=== PATIENT | male | born 1960 | race Caucasian/White ===

== ENCOUNTER → 2016-07-11 | Outpatient (CLI) | payer OTHER ==
[~2016-07-11] MED LIST: LIPITOR TAB 2020 MG PO; NORVASC 5 MG TAB5 MG PO
== END ==
LOC: US 14:39
DX: R22.1 Localized swelling, mass and lump, neck (principal)
CPT/HCPCS: 76536

== ENCOUNTER → 2020-05-13 | Outpatient (CLI) | payer OTHER ==
[2020-05-13 08:57] LABS: HEMOGLOBIN 15.9 gm/dl (14.0-17.5); RED BLOOD COUNT 5.38 M/UL (4.20-5.50); WHITE BLOOD COUNT 6.2 K/UL (4.5-11.0)
[2020-05-13 09:26] LABS: BUN/CREATININE RATIO 22 (0-10)
[2020-05-14 07:11] LABS: HBSAG SCREEN Negative (Negative); HEP B CORE AB, IGM Negative (Negative); HEPATITIS B SURF AB QUANT <3.1 mIU/mL (Immunity>9.9)
[2020-05-15 13:13] LABS: HISTOPLASMA GAL'MANNAN AG UR <0.5 (<0.5 ng/mL)
[2020-05-17 11:08] LABS: ADENOVIRUS F 40/41 Not Detected (Not Detected); ASTROVIRUS Not Detected (Not Detected); C DIFFICILE TOXIN A/B Not Detected (Not Detected); CAMPYLOBACTER Not Detected (Not Detected); CRYPTOSPORIDIUM Not Detected (Not Detected); CYCLOSPORA CAYETANENSIS Not Detected (Not Detected); ENTAMOEBA HISTOLYTICA Not Detected (Not Detected); ENTEROAGGREGATIVE E COLI Detected (Not Detected); ENTEROPATHOGENIC E COLI Not Detected (Not Detected); ENTEROTOXIGENIC E COLI Not Detected (Not Detected); GIARDIA LAMBLIA Not Detected (Not Detected); NOROVIRUS GI/GII Not Detected (Not Detected); PLESIOMONAS SHIGELLOIDES Not Detected (Not Detected); ROTAVIRUS A Not Detected (Not Detected); SALMONELLA Not Detected (Not Detected); SAPOVIRUS Not Detected (Not Detected); SHIGA-TOXIN-PRODUCING E COLI Not Detected (Not Detected); SHIGELLA/ENTEROINVASIVE E COLI Not Detected (Not Detected); VIBRIO Not Detected (Not Detected); VIBRIO CHOLERAE Not Detected (Not Detected); YERSINIA ENTEROCOLITICA Not Detected (Not Detected)
[2020-05-20 17:12] LABS: TPMT ACTIVITY 25.9 (.)
== END ==
LOC: LAB 06:52
PROVIDERS: Physician Assistant
DX: K51.90 Ulcerative colitis, unspecified, without complications (principal)
CPT/HCPCS: 36415; 80053; 83993; 85025; 86140; 86256; 86317; 86671; 86704; 86705; 87340; 87385; 87507

== ENCOUNTER → 2020-07-07 | Outpatient (CLI) | payer OTHER ==
[~2020-07-07] VITALS: Ht 188 cm; Wt 99.8 kg
[2020-07-07 09:22] LABS: HEMOGLOBIN 15.8 gm/dl (14.0-17.5); RED BLOOD COUNT 5.5 M/UL (4.20-5.50); WHITE BLOOD COUNT 14.2 K/UL (4.5-11.0)
[2020-07-07 09:48] LABS: BUN/CREATININE RATIO 26 (0-10)
== END ==
LOC: OPSV 07-03 09:00
PROVIDERS: Physician Assistant
DX: A04.4 Other intestinal Escherichia coli infections (principal); K52.9 Noninfective gastroenteritis and colitis, unspecified; I10 Essential (primary) hypertension; Z87.19 Personal history of other diseases of the digestive system; Z87.891 Personal history of nicotine dependence; Z88.1 Allergy status to other antibiotic agents; Z88.2 Allergy status to sulfonamides; Z88.8 Allergy status to other drugs, medicaments and biological substances
CPT/HCPCS: 36415; 80053; 85025; 86140; 96365; J3380; J7050

== ENCOUNTER → 2020-07-22 | Outpatient (CLI) | payer OTHER ==
[~2020-07-22] VITALS: Ht 188 cm; Wt 99.8 kg
[2020-07-22 10:01] LABS: HEMOGLOBIN 16.8 gm/dl (14.0-17.5); RED BLOOD COUNT 5.51 M/UL (4.20-5.50); WHITE BLOOD COUNT 8.1 K/UL (4.5-11.0)
[2020-07-22 10:26] LABS: BUN/CREATININE RATIO 22 (0-10)
== END ==
LOC: OPSV 09:00
PROVIDERS: Physician Assistant
DX: K51.90 Ulcerative colitis, unspecified, without complications (principal); K52.9 Noninfective gastroenteritis and colitis, unspecified; A04.4 Other intestinal Escherichia coli infections; K76.89 Other specified diseases of liver; Z86.79 Personal history of other diseases of the circulatory system; Z87.891 Personal history of nicotine dependence; Z88.1 Allergy status to other antibiotic agents; Z88.2 Allergy status to sulfonamides; Z88.8 Allergy status to other drugs, medicaments and biological substances
CPT/HCPCS: 36415; 80053; 85025; 86140; 96365; J3380; J7050

== ENCOUNTER → 2020-09-02 | Outpatient (CLI) | payer OTHER ==
[~2020-09-02] VITALS: Ht 188 cm; Wt 99.8 kg
[2020-09-02 09:34] LABS: HEMOGLOBIN 16.7 gm/dl (14.0-17.5); RED BLOOD COUNT 5.5 M/UL (4.20-5.50)
[2020-09-02 09:46] LABS: BUN/CREATININE RATIO 20 (0-10)
== END ==
LOC: OPSV 08:26
PROVIDERS: Physician Assistant
DX: A04.4 Other intestinal Escherichia coli infections (principal); K52.9 Noninfective gastroenteritis and colitis, unspecified
CPT/HCPCS: 36415; 80053; 85025; 86140; 96365; J3380; J7050

== ENCOUNTER → 2020-10-28 | Outpatient (CLI) | payer OTHER ==
[~2020-10-28] VITALS: Ht 188 cm; Wt 99.8 kg
[2020-10-28 09:13] LABS: HEMOGLOBIN 15.6 gm/dl (14.0-17.5); RED BLOOD COUNT 5.09 M/UL (4.20-5.50); WHITE BLOOD COUNT 10.5 K/UL (4.5-11.0)
[2020-10-28 09:38] LABS: BUN/CREATININE RATIO 19 (0-10)
== END ==
LOC: OPSV 08:22
PROVIDERS: Physician Assistant
DX: A04.4 Other intestinal Escherichia coli infections (principal); K52.9 Noninfective gastroenteritis and colitis, unspecified; K51.90 Ulcerative colitis, unspecified, without complications; I10 Essential (primary) hypertension; K76.89 Other specified diseases of liver; Z88.1 Allergy status to other antibiotic agents; Z88.2 Allergy status to sulfonamides; Z88.8 Allergy status to other drugs, medicaments and biological substances; Z87.891 Personal history of nicotine dependence
CPT/HCPCS: 36415; 80053; 85025; 86140; 96365; J3380; J7050

== ENCOUNTER → 2021-01-06 | Outpatient (CLI) | payer OTHER ==
[~2021-01-06] VITALS: Ht 188 cm; Wt 99.8 kg
[2021-01-06 09:30] LABS: HEMOGLOBIN 16.2 gm/dl (14.0-17.5); RED BLOOD COUNT 5.51 M/UL (4.20-5.50); WHITE BLOOD COUNT 9.7 K/UL (4.5-11.0)
[2021-01-06 09:54] LABS: BUN/CREATININE RATIO 18 (0-10)
== END ==
LOC: OPSV 08:45
PROVIDERS: Physician Assistant
DX: K51.90 Ulcerative colitis, unspecified, without complications (principal); K52.9 Noninfective gastroenteritis and colitis, unspecified; A04.4 Other intestinal Escherichia coli infections; K76.89 Other specified diseases of liver; Z87.891 Personal history of nicotine dependence
CPT/HCPCS: 36415; 80053; 85025; 86140; 96365; J3380; J7030

== ENCOUNTER 2021-02-19 12:44 | Emergency (ER) | payer OTHER ==
[2021-02-19 13:28] LABS: HEMOGLOBIN 14.1 gm/dl (14.0-17.5); RED BLOOD COUNT 4.77 M/UL (4.20-5.50); WHITE BLOOD COUNT 6.7 K/UL (4.5-11.0)
[2021-02-19 13:55] LABS: BUN/CREATININE RATIO 23 (0-10)
== END 2021-02-19 16:17 | disposition left against medical advice (07) ==
LOC: ER1 12:44
PROVIDERS: Nurse Practitioner
DX: R19.7 Diarrhea, unspecified (principal); Z87.891 Personal history of nicotine dependence; I10 Essential (primary) hypertension; Z90.49 Acquired absence of other specified parts of digestive tract; Z87.19 Personal history of other diseases of the digestive system
CPT/HCPCS: 80053; 83605; 85025; 86140; 99284

== ENCOUNTER 2021-02-23 04:56 | Emergency (ER) | payer OTHER ==
[~2021-02-23 04:56] MED LIST changes: -NORVASC 5 MG TAB5 MG PO; +PREDNISONE5 MG PO
[2021-02-23 05:56] LABS: HEMOGLOBIN 14.6 gm/dl (14.0-17.5); RED BLOOD COUNT 5.03 M/UL (4.20-5.50); WHITE BLOOD COUNT 5.8 K/UL (4.5-11.0)
[2021-02-23 06:20] LABS: BUN/CREATININE RATIO 24 (0-10)
== END 2021-02-23 07:20 | disposition home or self-care (01) ==
LOC: ER1 04:56
PROVIDERS: Student in an Organized Health Care Education/Training Program
DX: R19.7 Diarrhea, unspecified (principal); I10 Essential (primary) hypertension; Z90.49 Acquired absence of other specified parts of digestive tract; Z88.0 Allergy status to penicillin; Z88.2 Allergy status to sulfonamides
CPT/HCPCS: 80053; 85025; 96374; 99284; J2405; J7030

== ENCOUNTER 2021-02-25 10:14 | Inpatient (IN) | payer OTHER ==
[~2021-02-25] VITALS: Ht 188 cm; Wt 90.3 kg
[2021-02-25 10:52] LABS: HEMOGLOBIN 15.5 gm/dl (14.0-17.5); RED BLOOD COUNT 5.33 M/UL (4.20-5.50); WHITE BLOOD COUNT 7.2 K/UL (4.5-11.0)
[2021-02-25 11:18] LABS: ADENOVIRUS F 40/41 Not Detected (Negative); ASTROVIRUS Not Detected (Negative); CAMPYLOBACTER Not Detected (Negative); CRYPTOSPORIDIUM Not Detected (Negative); E.COLI 0157 Not Detected (Negative); ENTAMOEBA HISTOLYTICA Not Detected (Negative); ENTEROAGGREGATIVE E.COLI (EAEC Not Detected (Negative); ENTEROPATHOGENIC E.COLI (EPEC) Not Detected (Negative); ENTEROTOXIGENIC E.COLI (ETEC) Not Detected (Negative); GIARDIA LAMBLIA Not Detected (Negative); NOROVIRUS GI/GII Not Detected (Negative); PLESIOMONAS SHIGELLOIDES Not Detected (Negative); ROTOVIRUS A Not Detected (Negative); SALMONELLA Not Detected (Negative); SAPOVIRUS Not Detected (Negative); SHIG/ENTEROINVAS.ECOLI (EIEC) Not Detected (Negative); SHIGA-LIK TOX.PRO.E.COLI (STEC Not Detected (Negative); VIBRIO Not Detected (Negative); VIBRIO CHOLERAE Not Detected (Negative); YERSINIA ENTEROCOLITICA Not Detected (Negative)
[2021-02-25 11:21] LABS: BUN/CREATININE RATIO 35 (0-10)
[2021-02-25 12:59] LABS: CLOSTRIDIUM DIFFICILE TOX A/B DETECTED (Negative)
[2021-02-25] MEDS ORDERED: MONTELUKAST SOD10 MG PO (14:11)
[2021-02-25] MEDS ORDERED: ONE DAILY ESS400 MCG PO (14:14)
[2021-02-25] MEDS ORDERED: ZYRTEC10 MG PO (14:14)
[2021-02-25] MEDS ORDERED: LIALDA1.2 GM PO (14:17)
[2021-02-25] MEDS ORDERED: KENALOG OINT 0.15 GM TOP (14:17)
[2021-02-25] MEDS ORDERED: AMLODIPINE BESY10 MG PO (14:18)
[2021-02-25] MEDS ORDERED: NORVASC10 MG PO (19:33)
[2021-02-26 06:42] LABS: HEMOGLOBIN 16.2 gm/dl (14.0-17.5); RED BLOOD COUNT 5.56 M/UL (4.20-5.50)
[2021-02-26 06:43] LABS: WHITE BLOOD COUNT 4.1 K/UL (4.5-11.0)
[2021-02-26 06:57] LABS: BUN/CREATININE RATIO 43 (0-10)
[2021-02-27 07:32] LABS: HEMOGLOBIN 14.5 gm/dl (14.0-17.5); RED BLOOD COUNT 5.16 M/UL (4.20-5.50)
[2021-02-27 07:34] LABS: WHITE BLOOD COUNT 7.7 K/UL (4.5-11.0)
[2021-02-27 08:04] LABS: BUN/CREATININE RATIO 49 (0-10)
[2021-02-28 07:45] LABS: BUN/CREATININE RATIO 43 (0-10)
[2021-03-01 07:23] LABS: BUN/CREATININE RATIO 45 (0-10)
[2021-03-02 06:16] LABS: HEMOGLOBIN 15.2 gm/dl (14.0-17.5); RED BLOOD COUNT 5.29 M/UL (4.20-5.50); WHITE BLOOD COUNT 9.5 K/UL (4.5-11.0)
[2021-03-02 06:21] LABS: BUN/CREATININE RATIO 42 (0-10)
[2021-03-03 09:40] LABS: BUN/CREATININE RATIO 38 (0-10)
[2021-03-04 10:35] LABS: BUN/CREATININE RATIO 32 (0-10)
--- NOTE | 2021-03-04 10:39 | NUR ---
reported to dr. lomax patient low pulse ox and agreed of patient for o2 2l via n/c
[2021-03-05 06:15] LABS: BUN/CREATININE RATIO 30 (0-10)
--- NOTE | 2021-03-06 05:39 | NUR ---
APPROX 2200 AND 0200: NOTIFIED BY TECH THAT PATIENT REFUSED TO HAVE VITAL SIGNS TAKEN. APPROX 0510 NOTIFIED BY PATIENT WHEN ADMINISTERING 0600 MEDICATIONS THAT SHEETS WERE SOILED AND REMOVED BY PATIENT. PATIENT REFUSED TO HAVE CLEAN SHEETS PUT ON BED. STATED HE JUST WANTED TO REST AND NOT BE BOTHERED. RN COVERED PT WITH BLANKET AND INFORMED PT TO LET RN KNOW WHEN HE WAS READY TO CHANGE BED LINENS.
[2021-03-06 07:17] LABS: BUN/CREATININE RATIO 31 (0-10)
[2021-03-07 08:17] LABS: HEMOGLOBIN 15.1 gm/dl (14.0-17.5); RED BLOOD COUNT 5.37 M/UL (4.20-5.50); WHITE BLOOD COUNT 25.5 K/UL (4.5-11.0)
[2021-03-07] MEDS ORDERED: METRONIDAZOLE250 MG PO (11:18)
[2021-03-07] MEDS ORDERED: DIFICID 200 MG200 MG PO (11:18)
[2021-03-07] MEDS ORDERED: ASPIRIN PR (19:06)
[2021-03-08 05:52] LABS: HEMOGLOBIN 13.5 gm/dl (14.0-17.5)
[2021-03-08 06:18] LABS: RED BLOOD COUNT 4.8 M/UL (4.20-5.50)
[2021-03-08 22:12] LABS: ACINETOBACTER BAUMANNII Not Detected (Negative); CANDIDA ALBICANS Not Detected (Negative); CANDIDA KRUSEI Not Detected (Negative); CANDIDA TROPICALIS Not Detected (Negative); ENTEROCOCCUS Not Detected (Negative); ESCHERICHIA COLI Not Detected (Negative); HAEMOPHILUS INFLUENZAE Not Detected (Negative); KLEBSIELLA OXYTOCA Not Detected (Negative); KLEBSIELLA PNEUMONIAE Not Detected (Negative); KPC-CARBAPENEM-RESISTANCE GENE Not Detected (Negative); PROTEUS Not Detected (Negative); PSEUDOMONAS AERUGINOSA Not Detected (Negative); SERRATIA MARCESANS Not Detected (Negative); STREP AGALACTIAE (GROUP B) Not Detected (Negative); STREP PYOGENES (GROUP A) Not Detected (Negative); STREPTOCOCCUS Not Detected (Negative); vanA/B (VANCOMYCIN RESIST GENE Not Detected (Negative)
[2021-03-09 00:44] LABS: STAPHYLOCOCCUS DETECTED (Negative); STAPHYLOCOCCUS AUREUS DETECTED (Negative); mecA (METHICILLIN RESIST GENE DETECTED (Negative)
[2021-03-09 05:47] LABS: RED BLOOD COUNT 4.22 M/UL (4.20-5.50); WHITE BLOOD COUNT 13.6 K/UL (4.5-11.0)
[2021-03-09 06:17] LABS: BUN/CREATININE RATIO 33 (0-10)
[2021-03-09 19:08] LABS: HEPARIN INDUCED PLATELET AB 0.134 OD (0.000-0.400)
[2021-03-10 05:22] LABS: HEMOGLOBIN 12.7 gm/dl (14.0-17.5); RED BLOOD COUNT 4.45 M/UL (4.20-5.50); WHITE BLOOD COUNT 10.8 K/UL (4.5-11.0)
[2021-03-11 05:16] LABS: HEMOGLOBIN 11.2 gm/dl (14.0-17.5); WHITE BLOOD COUNT 8.2 K/UL (4.5-11.0)
[2021-03-11 05:17] LABS: RED BLOOD COUNT 3.94 M/UL (4.20-5.50)
[2021-03-12 04:50] LABS: HEMOGLOBIN 11.6 gm/dl (14.0-17.5); RED BLOOD COUNT 4.07 M/UL (4.20-5.50); WHITE BLOOD COUNT 8.9 K/UL (4.5-11.0)
[2021-03-12 05:21] LABS: BUN/CREATININE RATIO 42 (0-10)
--- NOTE | 2021-03-12 06:37 | NUR ---
02/26/21: PT REFUSED TO WEAR TELEMETRY. WAS NOTIFIED OF THIS REFUSAL. PT O2 SATURATION WAS MAINTING IN MID 90S AND WAS WEANED TO 02@2L NS BY THE END OF THE DAY. WAS SATISIFED WITH THE O2 SATURATION AND IS AWARE OF THE REFUSAL TO WEAR THE TELEMTRY.
--- NOTE | 2021-03-12 17:46 | NUR ---
I HAVE SPOKEN WITH MR. HUITRON'S SON MISSY AND AT THIS TIME THE FAMILY HAS DECIDED THAT THEY WANT TO PROCEED WITH COMFORT CARE IN THE MORNING 03/13/21. I HAVE EXPLAINED WHAT COMFORT CARE CONSISTS OF AND THE FAMILY IS COMFORTABLE WITH THE PROCEDURE AND PLANS TO COME TO THE HOSPITAL IN THE AM TO SPEAK WITH THE PHYSICIAN ABOUT COMFORT CARE ORDERS.
[2021-03-13 05:04] LABS: HEMOGLOBIN 11.9 gm/dl (14.0-17.5); RED BLOOD COUNT 4.24 M/UL (4.20-5.50); WHITE BLOOD COUNT 10.5 K/UL (4.5-11.0)
[2021-03-13 05:22] LABS: BUN/CREATININE RATIO 42 (0-10)
--- NOTE | 2021-03-13 10:36 | NUR ---
FAMILY IS IN THE HOSPITAL AT THIS TIME TO DISCUSS COMFORT MEASURES WITH THE PHYSICIAN.
--- NOTE | 2021-03-13 11:53 | NUR ---
PER FAMILY REQUEST AND MD ORDER PT IS NOW DNR, COMFORT MEASURES ONLY. PT IS TO BE EXUBATED PER ORDER. FAMILY IS AWARE AND IN THE LOBBY. IZABELARIVAN HAS BEEN OFF SINCE 1100 PER MD REQUEST.
== END 2021-03-14 11:43 | disposition expired | DRG 207 ==
LOC: ER1 10:14 → CCU 13:05 → CDU 13:05 → M/S 13:05 → CCU 03-07 09:29
PROVIDERS: Internal Medicine; Internal Medicine Critical Care Medicine; Physician Assistant; Physician Assistant Medical; ADMIT Internal Medicine
PROC: 8E0ZXY6 Isolation (ICD-10-PCS; principal; 2021-02-25)
PROC: 3E0333Z Introduction of Anti-inflammatory into Peripheral Vein, Percutaneous Approach (ICD-10-PCS; 2021-02-25)
PROC: XW033E5 Introduction of Remdesivir Anti-infective into Peripheral Vein, Percutaneous Approach, New Technology Group 5 (ICD-10-PCS; 2021-02-25)
PROC: 5A1955Z Respiratory Ventilation, Greater than 96 Consecutive Hours (ICD-10-PCS; 2021-03-07)
PROC: 02HV33Z Insertion of Infusion Device into Superior Vena Cava, Percutaneous Approach (ICD-10-PCS; 2021-03-07)
PROC: B548ZZA Ultrasonography of Superior Vena Cava, Guidance (ICD-10-PCS; 2021-03-07)
PROC: 0BH17EZ Insertion of Endotracheal Airway into Trachea, Via Natural or Artificial Opening (ICD-10-PCS; 2021-03-07)
PROC: B24BZZZ Ultrasonography of Heart with Aorta (ICD-10-PCS; 2021-03-08)
PROC: 3E033XZ Introduction of Vasopressor into Peripheral Vein, Percutaneous Approach (ICD-10-PCS; 2021-03-08)
PROC: B24BZZ4 Ultrasonography of Heart with Aorta, Transesophageal (ICD-10-PCS; 2021-03-11)
DX: J80 Acute respiratory distress syndrome (principal); U07.1 COVID-19; J12.82 Pneumonia due to coronavirus disease 2019; G93.41 Metabolic encephalopathy; R65.21 Severe sepsis with septic shock; I63.312 Cerebral infarction due to thrombosis of left middle cerebral artery; A41.02 Sepsis due to Methicillin resistant Staphylococcus aureus; A04.72 Enterocolitis due to Clostridium difficile, not specified as recurrent; I48.19 Other persistent atrial fibrillation; K51.90 Ulcerative colitis, unspecified, without complications; L03.116 Cellulitis of left lower limb; L03.115 Cellulitis of right lower limb; N17.9 Acute kidney failure, unspecified; E87.0 Hyperosmolality and hypernatremia; R57.8 Other shock; E86.0 Dehydration; R79.89 Other specified abnormal findings of blood chemistry; L89.316 Pressure-induced deep tissue damage of right buttock; L89.321 Pressure ulcer of left buttock, stage 1; F17.210 Nicotine dependence, cigarettes, uncomplicated; D69.6 Thrombocytopenia, unspecified; R40.2434 Glasgow coma scale score 3-8, 24 hours or more after hospital admission; E87.6 Hypokalemia; E83.51 Hypocalcemia; Z99.81 Dependence on supplemental oxygen; Z90.49 Acquired absence of other specified parts of digestive tract; Z88.0 Allergy status to penicillin; Z82.5 Family history of asthma and other chronic lower respiratory diseases; Z80.9 Family history of malignant neoplasm, unspecified; Z79.01 Long term (current) use of anticoagulants; Z91.14 Patient's other noncompliance with medication regimen
CPT/HCPCS: ECHO; 31500; 36415; 36600; 70450; 70460; 70496; 70498; 71045; 80048; 80053; 80076; 80202; 81001; 82550; 82553; 82803; 82962; 83605; 83735; 83874; 84132; 84484; 85025; 85027; 85379; 85384; 85610; 86140; 87040; 87045; 87046; 87077; 87086; 87150; 87186; 87507; 93005; 93306; 93312; 93320; 94002; 94003; 94760; 96372; 96374; 99285; A6212; C9113; J1100; J1160; J1650; J2060; J2185; J2270; J2370; J2405; J2704; J3010; J3370; J7030; J7050; J7070; Q9967